=== PATIENT | female | born 1995 | race African-American/Black ===

== ENCOUNTER 2016-10-29 03:36 | Emergency (ER) | payer SELFPAY ==
[~2016-10-29] VITALS: Ht 175.3 cm; Wt 55.0 kg
[2016-10-29 03:44] VITALS: BP 114/60; PULSE 58; RESP 16; TEMP 97.8; O2SAT 93
[2016-10-29] MEDS ORDERED: SODIUM CHLOR 0.9% 1000 ML INJ 1,000 ML IV ONE (04:17)
[2016-10-29] MEDS ORDERED: SODIUM CHLORIDE 0.9% FLUSH 5 ML FLUSH IVF PRN (04:30)
[2016-10-29 04:38] LABS: AUTOMATED NEUTROPHIL # 5.3 TH/MM3 (1.8-7.7); BASOPHIL # 0.1 TH/MM3 (0-0.2); BASOPHIL % 0.9 % (0.0-2.0); EOSINOPHIL # 0.3 TH/MM3 (0-0.4); HEMATOCRIT 24.6 % (35.0-46.0); LYMPH % 27.3 % (9.0-44.0); LYMPHOCYTE # 2.3 TH/MM3 (1.0-4.8); MEAN CELL VOLUME 58.8 FL (80.0-100.0); MEAN CORPUSCULAR HEMOGLOBIN 17.9 PG (27.0-34.0); MEAN CORPUSCULAR HGB CONC 30.5 % (32.0-36.0); MONO % 6.5 % (0.0-8.0); NEUT % 62.3 % (16.0-70.0); PLATELET COUNT 267 TH/MM3 (150-450); RED BLOOD COUNT 4.18 MIL/MM3 (4.00-5.30); RED CELL DISTRIBUTION WIDTH 20.1 % (11.6-17.2); WHITE BLOOD COUNT 8.5 TH/MM3 (4.0-11.0)
[2016-10-29 04:40] LABS: HEMO FLAGS AUTO DIFF
--- NOTE | 2016-10-29 04:59 | RADRPT ---
EXAM DATE/TIME: 10/29/2016 04:32 [facility] COMPARISON: CHEST SINGLE AP, May 09, 2016, 4:00. INDICATIONS : Syncope. Weakness. MEDICAL HISTORY : None. SURGICAL HISTORY : None. ENCOUNTER: Initial ACUITY: 1 day PAIN SCORE: Non-responsive. LOCATION: Bilateral chest FINDINGS: A single view of the chest demonstrates the lungs to be symmetrically aerated without evidence of mas s, infiltrate or effusion. The cardiomediastinal contours are unremarkable. Osseous structures are intact. CONCLUSION: No acute disease. Madi Hoyos MD on October 29, 2016 at 4:58 Board Certified Radiologist. This report was verified electronically.
--- NOTE | 2016-10-29 05:09 | RADRPT ---
EXAM DATE/TIME: 10/29/2016 04:45 [facility] COMPARISON: No previous studies available for comparison. INDICATIONS : Altered mental status; ETOH. RADIATION DOSE: 56.35 CTDIvol (mGy) MEDICAL HISTORY : Non-responsive. SURGICAL HISTORY : Non-responsive. ENCOUNTER: Initial ACUITY: 1 day PAIN SCALE: Non-responsive LOCATION: cranial TECHNIQUE: Multiple contiguous axial images were obtained of the head. Using automated exposure control and adj ustment of the mA and/or kV according to patient size, radiation dose was kept as low as reasonably a chievable to obtain optimal diagnostic quality images. FINDINGS: CEREBRUM: The ventricles are normal for age. No evidence of midline shift, mass lesion, hemorrhage or acute in farction. No extra-axial fluid collections are seen. POSTERIOR FOSSA: The cerebellum and brainstem are intact. The 4th ventricle is midline. The cerebellopontine angle i s unremarkable. EXTRACRANIAL: The visualized portion of the orbits is intact. SKULL: The calvaria is intact. No evidence of skull fracture. CONCLUSION: Normal examination. Madi Hoyos MD on October 29, 2016 at 5:07 Board Certified Radiologist. This report was verified electronically.
[2016-10-29 05:27] LABS: OVALOCYTES 2+ (NORMAL)
[2016-10-29 05:28] LABS: KERATOCYTES 2+ (NORMAL)
[2016-10-29 05:29] LABS: SICKLE CELLS 1+ (NORMAL)
[2016-10-29 05:30] LABS: SCAN/DIFF AUTO DIFF CONFIRMED
[2016-10-29 05:31] LABS: ALT (GPT) 25 U/L (10-53); ANION GAP 10 MEQ/L (5-15); AST (GOT) 40 U/L (15-37); BICARBONATE 24.3 MEQ/L (21.0-32.0); BLOOD UREA NITROGEN 9 MG/DL (7-18); CHLORIDE 110 MEQ/L (98-107); GLOMERULAR FILTRATION RATE 109 ML/MIN (>89); MAGNESIUM 2.1 MG/DL (1.5-2.5); POTASSIUM 3.3 MEQ/L (3.5-5.1); SODIUM (NA) 144 MEQ/L (136-145)
[2016-10-29 05:32] LABS: ALKALINE PHOSPHATASE 51 U/L (45-117); TOTAL BILIRUBIN ADULT 0.3 MG/DL (0.2-1.0)
[2016-10-29] MEDS ORDERED: POTASSIUM CHLORIDE 20 MEQ CONTROLLED RELEASE TAB PO ONE ×2 (06:15→06:30)
[2016-10-29] MEDS ORDERED: ZOFR4TAB3 SL (06:18)
--- NOTE | 2016-10-29 06:19 | PD ---
HPI Chief Complaint: Alcohol/Drug Intoxication Time Seen by Provider: 04:17 Travel History International Travel<30 days: No Contact w/Intl Traveler<30days: No Traveled to known affect area: No History of Present Illness HPI 21-year-old female presents to the emergency department by EMS transport for evaluation of decreased level of consciousness after drinking alcohol heavily celebrating her birthday and while attempting to vomit hit her head on a toilet. Friends thought that she was not arousing properly and called EMS to transport the patient to the emergency room. No report of patient ever having loss of pulse or not breathing. Patient here reports that she was drinking too much. Patient reports she's been drinking since 6 PM on Monday evening. Patient denies any other substance ingestion. Patient denies any pain. 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 PFSH Past Medical History Narrative Medical Iron deficiency anemia sickle cell anemia no surgeries alcohol use nursing notes reviewed Anemia: Yes (IRON DEFICIENCY ANEMIA) Diminished Hearing: No Immunizations Current: Yes Sickle Cell Disease: Yes Tetanus Vaccination: Unknown ?: Unknown LMP: unknown : 1 : 1 Social History Alcohol Use: Yes (bottle of [email or web address]) Tobacco Use: No Substance Use: No Allergies-Medications (Allergen,Severity, Reaction): Coded Allergies: Mushroom (Verified Allergy, Severe, Anaphylaxis, 06/02/16) Pea (Verified Allergy, Severe, Anaphylaxis, 06/02/16) Banana (Verified Allergy, Intermediate, Wheezing, 06/02/16) Cat Dander (Verified Allergy, Unknown, 06/02/16) Reported Meds & Prescriptions Reported Meds & Active Scripts Active Zofran Odt (Ondansetron Odt) 4 Mg Tab 4 Mg SL Q6HR PRN Review of Systems Except as stated in HPI: all other systems reviewed are Neg General / Constitutional: No: Fever, Chills Eyes: No: Visual changes HENT: No: Headaches, Neck Stiffness, Neck Pain Cardiovascular: No: Chest Pain or Discomfort Respiratory: No: Shortness of Breath Gastrointestinal: Positive: Nausea, Vomiting, No: Abdominal Pain Genitourinary: No: Flank Pain Musculoskeletal: No: Myalgias, Arthralgias Skin: No Rash Neurologic: Positive: Dizziness, No: Weakness, Syncope, Focal Abnormalities Psychiatric: No: Anxiety Endocrine: No: Polydipsia Hematologic/Lymphatic: No: Lymph Node Enlargement Physical Exam Narrative GENERAL: Well-developed well-nourished female in no acute distress no respiratory distress GCS 14 SKIN: Warm and dry. HEAD: Atraumatic. Normocephalic. Scalp nontender to direct palpation however difficult to palpate due to with/hair piece in place. No laceration. No bony step-off. EYES: Pupils equal and round. Extraocular muscles intact. No scleral icterus. No injection or drainage. ENT: No nasal bleeding or discharge. Mucous membranes pink and moist. Airway is patent. NECK: Trachea midline. No JVD. No midline tenderness to direct palpation along the cervical spine no bony step-off. CARDIOVASCULAR: Regular rate and rhythm. RESPIRATORY: No accessory muscle use. Clear to auscultation. Breath sounds equal bilaterally. GASTROINTESTINAL: Abdomen soft, non-tender, nondistended. Hepatic and splenic margins not palpable. MUSCULOSKELETAL: Extremities without clubbing, cyanosis, or edema. No obvious deformities. NEUROLOGICAL: Drowsy but readily conversant with verbal stimulation. No obvious cranial nerve deficits. Motor grossly within normal limits. Five out of 5 muscle strength in the arms and legs. Normal speech. PSYCHIATRIC: Appropriate mood and affect; insight and judgment normal. Data Data Last Documented VS Vital Signs Date Time Temp Pulse Resp B/P Pulse Ox O2 Delivery O2 Flow Rate FiO2 10/29/16 07:01 78 15 116/55 99 Room Air 10/29/16 03:44 97.8 Orders Complete Blood Count With Diff (10/29/16 04:17) Comprehensive Metabolic Panel (10/29/16 04:17) Urinalysis - C+S If Indicated (10/29/16 04:17) Chest, Single Ap (10/29/16 04:17) Ct Brain W/O Iv Contrast(Rout) (10/29/16 04:17) Blood Glucose (10/29/16 04:17) Iv Access Insert/Monitor (10/29/16 04:17) Ecg Monitoring (10/29/16 04:17) Oximetry (10/29/16 04:17) Sodium Chloride 0.9% Flush (Ns Flush) (10/29/16 04:30) Sodium Chlor 0.9% 1000 Ml Inj (Ns 1000 M (10/29/16 04:17) Alcohol (Ethanol) (10/29/16 04:17) Magnesium (Mg) (2/25/17 04:17) Ed Urine Pregnancytest Poc (10/29/16 04:17) Potassium Chloride (Kcl) (10/29/16 06:15) Potassium Chloride (Kcl) (10/29/16 06:30) Calcium Gluconate (Calcium Gluconate) (10/29/16 06:30) Labs Laboratory Tests Test 10/29/16 04:30 White Blood Count 8.5 TH/MM3 Red Blood Count 4.18 MIL/MM3 Hemoglobin 7.5 GM/DL Hematocrit 24.6 % Mean Corpuscular Volume 58.8 FL Mean Corpuscular Hemoglobin 17.9 PG Mean Corpuscular Hemoglobin 30.5 % Concent Red Cell Distribution Width 20.1 % Platelet Count 267 TH/MM3 Mean Platelet Volume 8.9 FL Neutrophils (%) (Auto) 62.3 % Lymphocytes (%) (Auto) 27.3 % Monocytes (%) (Auto) 6.5 % Eosinophils (%) (Auto) 3.0 % Basophils (%) (Auto) 0.9 % Neutrophils # (Auto) 5.3 TH/MM3 Lymphocytes # (Auto) 2.3 TH/MM3 Monocytes # (Auto) 0.6 TH/MM3 Eosinophils # (Auto) 0.3 TH/MM3 Basophils # (Auto) 0.1 TH/MM3 CBC Comment AUTO DIFF Differential Comment AUTO DIFF CONFIRMED Sickle Cells 1+ Ovalocytes 2+ Keratocytes 2+ Sodium Level 144 MEQ/L Potassium Level 3.3 MEQ/L Chloride Level 110 MEQ/L Carbon Dioxide Level 24.3 MEQ/L Anion Gap 10 MEQ/L Blood Urea Nitrogen 9 MG/DL Creatinine 0.80 MG/DL Estimat Glomerular Filtration 109 ML/MIN Rate Random Glucose 116 MG/DL Calcium Level 7.7 MG/DL Magnesium Level 2.1 MG/DL Total Bilirubin 0.3 MG/DL Aspartate Amino Transf 40 U/L (AST/SGOT) Alanine Aminotransferase 25 U/L (ALT/SGPT) Alkaline Phosphatase 51 U/L Total Protein 7.1 GM/DL Albumin 3.6 GM/DL Ethyl Alcohol Level 197 MG/DL MDM Medical Decision Making Medical Screen Exam Complete: Yes Emergency Medical Condition: Yes Medical Record Reviewed: Yes Interpretation(s) CBC & BMP Diagram 10/29/16 04:[address] 10/29/16 9467 Signed Impressions: Service Date/Time: Saturday, October 29, 2016 04:45 - CONCLUSION: Normal examination. Madi Hoyos MD Chest X-Ray 10/29/16 0417 Signed Impressions: Service Date/Time: Saturday, October 29, 2016 04:32 - CONCLUSION: No acute disease. Madi Hoyos MD POC hcg: negative Differential Diagnosis Alcohol intoxication, polysubstance ingestion, minor CHI, ICH, contusion, dehydration Narrative Course IV access obtained specimens collected and sent for resulting; patient administered Zofran 4 mg IV and a liter of normal saline Diagnosis Primary Impression: Alcohol intoxication Qualified Code: F10.120 - Alcohol intoxication, uncomplicated Additional Impressions: Mild closed head injury Qualified Code: S09.90XA - Mild closed head injury, initial encounter Chronic anemia Referrals: Primary Care Physician call for appointment Patient Instructions: General Instructions Additional Instructions: Increase fluid hydration Follow-up with your primary care provider/specialist Return to the emergency department for any concerns or change in condition Do not drink alcoholic beverages Follow head injury precautions 24 hours May use acetaminophen/Tylenol as needed for minor discomfort or for fever 100.4 F or greater may use this medication as often as every 4 hours May use ibuprofen/Advil/Motrin as tolerated every 6-8 hours as needed for fever 100.4F or greater or for pain associated inflammation May begin this medication as needed tomorrow Take medication as prescribed as needed for nausea and/or vomiting Med/Other Pt SpecificInfo: Prescription(s) given Scripts Ondansetron Odt (Zofran Odt)4 Mg Tab4 Mg SL Q6HR PRN (Nausea/Vomiting) #10 TAB Ref 0 Prov:Anali Watts MD 10/29/16 Disposition: 01 DISCHARGE HOME Condition: Stable Anali Watts MD Oct 29, 2016 06:19
[2016-10-29] MEDS ORDERED: CALCIUM GLUCONATE 500 MG TAB PO ONE (06:30)
[2016-10-29 07:01] VITALS: BP 116/55; PULSE 78; RESP 15; O2SAT 99
[2016-10-29 07:54] LABS: BLOOD, URINE TRACE (NEG); COMMENT (UR) CULT NOT INDICATED; CULTURE IF INDICATED CULT NOT INDICATED; GLUCOSE,URINE NEG (NEG); KETONE, URINE NEG (NEG); MUCUS URINE FEW /lpf (OCC); NITRITE,URINE NEG (NEG); PH, URINE 7.5 (5.0-8.5); SQUAMOUS EPITHELIAL CELL URINE 5 /hpf (0-5); URINE COLOR LIGHT-YELLOW (YELLW/STRAW)
[2016-10-29 08:41] VITALS: BP 118/60
== END 2016-10-29 08:42 | disposition home or self-care (01) ==
LOC: NEPC 03:36
DX: F10.120 Alcohol abuse with intoxication, uncomplicated (principal); S09.90XA Unspecified injury of head, initial encounter; D64.89 Other specified anemias; Z86.2 Personal history of diseases of the blood and blood-forming organs and certain disorders involving the immune mechanism; W22.09XA Striking against other stationary object, initial encounter
CPT/HCPCS: 70450; 71010; 80053; 80320; 81001; 83735; 84703; 85025; 99285; J7030